=== PATIENT | female | born 1980 | race African-American/Black ===

== ENCOUNTER 2023-10-06 13:02 | Emergency (ER) | payer MEDICAID, OTHER ==
[~2023-10-06] VITALS: Ht 160 cm; Wt 81.0 kg
[~2023-10-06 13:02] MED LIST: ALPR0.25 PO; BUTA1CAP17 PO; CODE1CAP54 PO; MECL-115 PO; PERP4TAB11 PO; PROMETHAZINE; TOPI25TA48 PO; TRAM50TA3 PO
[2023-10-06 13:22] VITALS: TEMP 98.3; O2SAT 100
[2023-10-06] MEDS: CYCLOBENZAPRINE 10MG TABLET PO ONE (15:04)
[2023-10-06 15:06] VITALS: BP 148/98; PULSE 96; RESP 16
[2023-10-06] MEDS: KETOROLAC 15MG/ML VIAL IM ONE (15:06)
[2023-10-06] MEDS ORDERED: CYCL10TA21 MT (16:43)
[2023-10-06] MEDS ORDERED: NAPR-681 MT (16:43)
== END 2023-10-06 17:05 | disposition home or self-care (01) ==
LOC: ER 13:08
DX: M25.572 Pain in left ankle and joints of left foot (principal); M25.552 Pain in left hip; I10 Essential (primary) hypertension; J45.909 Unspecified asthma, uncomplicated; Z98.890 Other specified postprocedural states; V99.XXXA Unspecified transport accident, initial encounter; Y93.89 Activity, other specified; Y92.89 Other specified places as the place of occurrence of the external cause; Y99.8 Other external cause status
CPT/HCPCS: 73502; 73610; 96372; 99284; J1885; Z7610

== ENCOUNTER 2024-01-01 06:58 | Emergency (ER) | payer MEDICAID ==
[~2024-01-01] VITALS: Ht 160 cm; Wt 81.3 kg
[~2024-01-01 06:58] MED LIST changes: +CYCL10TA21 MT; +NAPR-681 MT
[2024-01-01 07:13] VITALS: O2SAT 100
[2024-01-01] MEDS ORDERED: DEXAMETHASONE 10 MG/ML VIAL IM ONE (08:45)
[2024-01-01] MEDS ORDERED: METH-653 MT (08:47)
[2024-01-01] MEDS ORDERED: KETO10TA2 MT (08:47)
[2024-01-01] MEDS: DEXAMETHASONE 10 MG/ML VIAL IM NR (10:35)
[2024-01-01 10:48] VITALS: BP 115/67; PULSE 90; RESP 17; TEMP 36.89184; O2SAT 100
== END 2024-01-01 10:49 | disposition home or self-care (01) ==
LOC: ER 06:58
DX: S46.002A Unspecified injury of muscle(s) and tendon(s) of the rotator cuff of left shoulder, initial encounter (principal); Z88.1 Allergy status to other antibiotic agents; Z79.899 Other long term (current) drug therapy; X58.XXXA Exposure to other specified factors, initial encounter; Y93.89 Activity, other specified; Y92.89 Other specified places as the place of occurrence of the external cause; Y99.8 Other external cause status
CPT/HCPCS: 99283; 73030; 96372; J1100